=== PATIENT | male | born 1980 | race Caucasian/White ===

== ENCOUNTER → 2020-01-11 | Outpatient (CLI) | payer BC | END | disposition home or self-care (01) | LOC: LABWHC1 13:22 | PROVIDERS: ATTEND Family Medicine | DX: Z03.818 Encounter for observation for suspected exposure to other biological agents ruled out (principal) | CPT/HCPCS: U0003; C9803 ==

== ENCOUNTER → 2023-10-16 | Outpatient (CLI) | payer BC ==
--- NOTE | 2023-10-16 09:30 | CT ---
EXAMINATION TYPE: CT sinus wo con DATE OF EXAM: 10/16/2023 COMPARISON: None HISTORY: Chronic maxillary sinusitis CT DLP: 649 mGycm. Automated Exposure Control for Dose Reduction was Utilized. TECHNIQUE: CT scan of the sinuses is performed without contrast, axial images are obtained, coronal r eformatted images are also reviewed. FINDINGS: There is near-complete opacification of the left maxillary sinus with occlusion of the osti al meatal complex. There is moderate mucosal thickening involving the right maxillary sinus with occl usion of the ostiomeatal complex. Severe mucosal thickening involving the ethmoid air cells. Mild changes seen involving the sphenoid a nd mild to moderate changes involving the frontal sinus. Findings compatible with chronic sinusitis.. Visualized portion of mastoid air cells show no abnormal opacification. The globes are intact bilate rally. IMPRESSION: 1. Severe assess chronic sinusitis most marked involving the maxillary sinus and ethmoid air cells. O cclusion of the bilateral ostiomeatal complex.
[2023-10-16 19:35] LABS: Alternaria alternata IgE <0.10 kU/L; Aspergillus fumagatus IgE <0.10 kU/L; Birch IgE 1.24 kU/L; Cat Epith & Dander IgE <0.10 kU/L; Cladosporian herbarum IgE <0.10 kU/L; Cockroach IgE <0.10 kU/L; Dermato. farinae IgE <0.10 kU/L; Dog Dander IgE <0.10 kU/L; Elm IgE <0.10 kU/L; Maple (Box Elder) IgE <0.10 kU/L; Oak IgE <0.10 kU/L; Ragweed,Common IgE 1.03 kU/L; Red Top (Bentgrass) IgE 0.52 kU/L
== END | disposition home or self-care (01) ==
LOC: RADCTMAIN 08:26
PROVIDERS: ATTEND Otolaryngology
DX: J34.89 Other specified disorders of nose and nasal sinuses (principal); J32.0 Chronic maxillary sinusitis; J30.89 Other allergic rhinitis
CPT/HCPCS: 70486; 82785; 86003

== ENCOUNTER 2023-12-09 07:40 | Day surgery (SDC) | payer BC ==
[~2023-12-09 07:40] MED LIST: LIDOCAINE 1% (10MG/ML) FOR IV START INTRADERMA PRN; MIDAZOLAM 2 MG/2 ML VIAL IV PRN
[2023-12-09] MEDS: OXYMETAZOLINE 0.05% NASL SPRAY 1 SPRAY BOTTLE EA NOSTRIL PRN (08:12)
[2023-12-09] MEDS: DEXAMETHASONE SOD PHOSPHATE 4 MG/ML 1 ML VIAL IV ONE (08:21)
[2023-12-09] MEDS: LACTATED RINGERS 1,000 ML IV SCH (08:21)
[2023-12-09] MEDS: ONDANSETRON 4 MG/2 ML VIAL IVP ONE (08:21)
[2023-12-09] MEDS: FAMOTIDINE 20 MG/2 ML VIAL IV PRN (08:21)
[2023-12-09] MEDS: IV FLUID CONTINUATION 1,000 ML IV ONE (08:28)
[2023-12-09] MEDS ORDERED: PROPOFOL 10 MG/ML 20 ML VIAL IV ONE (08:39)
[2023-12-09] MEDS ORDERED: HYDROmorphone (PF) 1 MG/ML ONE (08:39)
[2023-12-09] MEDS ORDERED: MIDAZOLAM 2 MG/2 ML VIAL ONE (08:39)
[2023-12-09] MEDS ORDERED: fentaNYL (PF) 50 MCG/ML 2 ML AMP ONE (08:39)
[2023-12-09] MEDS ORDERED: DEXAMETHASONE SOD PHOSPHATE 10 MG/ML 1 ML VIAL ONE (08:39)
[2023-12-09] MEDS ORDERED: LIDOCAINE 1% INJ 10MG/ML (20 ML MDV) ONE (08:39)
[2023-12-09] MEDS ORDERED: SUCCINYLCHOLINE CHLORIDE 200 MG/10 ML VIAL IV ONE (08:39)
[2023-12-09] MEDS: CLINDAMYCIN 600 MG in DEXTROSE 5% IN WATER 50 ML IVPB PRN (08:44)
[2023-12-09] MEDS: LIDOCAINE 1%-EPI 1:100,000 20 ML VIAL SUBMUCOSAL ONE (09:07)
--- NOTE | 2023-12-09 10:19 | P.OP ---
Date of Procedure: 12/09/23 Preoperative Diagnosis: deviated nasal septum Inferior turbinate hypertrophy Chronic sinusitis Postoperative Diagnosis: same Procedure(s) Performed: septoplasty Outfractured and submucous resection inferior turbinates Bilateral endoscopic sinus surgery including bilateral maxillary antrostomy with removal of tissue maxillary sinuses, bilateral anterior posterior ethmoidectomy, bilateral frontal sinusotomy with removal of tissue and bilateral sphenoidotomy with exploration and removal of tissue Anesthesia: SALONI Surgeon: Saravanan Rodriguez Estimated Blood Loss (ml): 10 Pathology: other (nasal septal bone and cartilage and sinus contents) Condition: stable Disposition: PACU Indications for Procedure: this is a 43-year-old white male with chronic nasal airway obstruction congestion and recurrent/chronic sinusitis Operative Findings: nasal septum deviated to the right anteriorly to the left posteriorly inferior turbinate hypertrophy diffuse polyps in the ETHMOID frontal and sphenoid and maxillary sinuses Description of Procedure: The patient was brought into the operative suite and placed in a supine position. The patient underwent induction of general anesthesia with oral endotracheal intubation without difficulty. The patient was prepped and draped in the usual aseptic fashion with the orbits in the operating field for monitoring to the case and the computed tomography scan was on the computer screen for review throughout the case. 1% lidocaine with 1 :100,000 epinephrine was infused submucosally into both sides of the nasal septum as well as the lateral nasal wall and anterior tips of the middle turbinates. While this was taking vasoconstrictive effect the inferior turbinates were infractured with Mcintosh elevator and partial submucous resection of the inferior turbinates was performed with a portion of the submucosal soft tissue and the inferior turbinate bone removed with Coblation device. The inferior turbinates were then outfractured with the Mcintosh elevator. A left hemitransfixion incision was then made with the mucoperichondrial and mucoperiosteal flap on the left elevated. The bony cartilaginous junction was disarticulated and the mucoperiosteal flap on the right was elevated. Bony marisabel al septal deformities were removed with Kevin forceps and an inferior cartilaginous strip was removed leaving a full 1.5 cm caudal strut. Checking intranasally this corrected the nasoseptal deformities and the hemitransfixion incision was closed with a running 4-0 chromic suture. Full 0 endoscopic examination is performed bilaterally. Beginning on the left, the middle turbinate was medialized. The maxillary ostium was located with a ballpoint probe and an infundibulotomy was performed followed by uncinectomy. The maxillary antrostomy was enlarged at the expense of the anterior and posterior fontanelle taking care anteriorly not to injure the lacrimal bone. The maxillary sinus was evaluated with 30 and 70 endoscope .[Abnormal appearing tissue was removed from the maxillary sinus]. Anterior and posterior ethmoidectomy were then performed from anterior to posterior to the level of the skull base. The roof of the anterior ethmoid air cells were then cleaned from posterior to anterior using up-biting Blakesley forceps. sinusotomy was performed with 30 endoscope up-biting Blakesley forceps and giraffe forceps and the sinus was then explored. The frontal sinus was then ex plored with 30 endoscope.[Abnormal tissue was removed from the frontal sinus]. sphenoidotomy was performed under 0 endoscopic evaluation with straight suction and straight Blakesley forceps The sphenoid sinus was then explored with 0 endoscope.[Abnormal tissue was removed from the sphenoid sinus]. Attention was then turned to the right where the procedures were followed as they had been on the left including medialization middle turbinate infundibulotomy uncinectomy maxillary antrostomy with removal of tissue maxillary sinus, anterior and posterior ethmoidectomy frontal sinusotomy with r emoval of tissue and sphenoidotomy with removal of tissue [Nasopore nasal dressing was placed in the middle meatus bilaterally under direct visualization]. Bilateral Gannon airway splints coated with bacitracin ointment were placed and sutured transseptally with a 4-0 nylon suture. The patient was suctioned in oral gastric fashion and was allowed to emerge from general anesthesia having tolerated procedure well and was extubated in the operating suite and transferred to the postoperative recovery area in satisfactory condition.
[2023-12-09 10:22] VITALS: TEMP 97.4
[2023-12-09 10:39] VITALS: RESP 16
[2023-12-09] MEDS: HYDROmorphone 0.5 MG/0.5 ML SYRINGE IVP PRN (10:41)
[2023-12-09] MEDS: hydrALAZINE HCL 20 MG/ML 1 ML VIAL IVP STA (10:43)
[2023-12-09] MEDS: ONDANSETRON 4 MG/2 ML VIAL IVP PRN (11:13)
[2023-12-09 12:13] VITALS: BP 133/88; PULSE 73
== END 2023-12-09 12:40 | disposition home or self-care (01) ==
LOC: OR 07:40
PROVIDERS: ATTEND Otolaryngology
DX: J34.2 Deviated nasal septum (principal); J34.3 Hypertrophy of nasal turbinates; J32.8 Other chronic sinusitis; J34.89 Other specified disorders of nose and nasal sinuses; J45.20 Mild intermittent asthma, uncomplicated; E66.9 Obesity, unspecified; Z68.30 Body mass index [BMI] 30.0-30.9, adult; Z88.0 Allergy status to penicillin; Z79.51 Long term (current) use of inhaled steroids; Z79.899 Other long term (current) drug therapy; Z79.52 Long term (current) use of systemic steroids
CPT/HCPCS: 88305; 88300; 30520; 30140; 31267; 31259; 31276; J2250; J0330; J0360; J1100 ×2; J2405; J2001; J3010; J3490; J1170 ×2; J2704; J0736

== ENCOUNTER → 2024-09-16 | Outpatient (CLI) | payer BC ==
--- NOTE | 2024-09-16 11:11 | US ---
EXAMINATION TYPE: US venous doppler duplex LE DATE OF EXAM: 09/16/2024 10:42 AM COMPARISON: NONE CLINICAL INDICATION: Male, 43 years old with history of R22.43 LOCALIZED SWELLING, MASS AND LUMP, LOW ER LI; Swelling, Pain TECHNIQUE: The lower extremity deep venous system is examined utilizing real time linear array sonog ralph with graded compression, color doppler sonography, and spectral doppler. SIDE PERFORMED: Bilateral FINDINGS: VESSELS IMAGED: Common Femoral Vein Deep Femoral Vein Greater Saphenous Vein * Femoral Vein Popliteal Vein Small Saphenous Vein * Proximal Calf Veins (* superficial vessels) Right Leg: Negative for DVT, Color Doppler imaging shows patency of the vessels. Spectral waveforms are within normal limits. Left Leg: Negative for DVT, Color Doppler imaging shows patency of the vessels. Spectral waveforms a re within normal limits. IMPRESSION: No ultrasound evidence for deep venous thrombosis. [facility], , 09/16/2024 11:08 AM
== END | disposition home or self-care (01) ==
LOC: RADUSWWP 10:16
PROVIDERS: ATTEND Otolaryngology
DX: M25.471 Effusion, right ankle (principal); M25.472 Effusion, left ankle; M25.474 Effusion, right foot; M25.475 Effusion, left foot
CPT/HCPCS: 93970